=== PATIENT | male | born 1960 | race Caucasian/White ===

== ENCOUNTER 2019-04-23 10:15 | Emergency (ER) | payer BC, OTHER ==
[~2019-04-23] VITALS: Ht 172.7 cm; Wt 90.6 kg
[2019-04-23] MEDS ORDERED: IBUP-1114 PO (10:22)
[2019-04-23 11:09] LABS: BASO % 0.6 % (0.0-1.0); EOS # 0.1 10^3/uL (0.0-0.50); EOS % 1.4 % (0.0-3.0); HEMATOCRIT 46.6 % (42.0-52.0); HEMOGLOBIN 16.1 g/dl (13.5-17.5); LYMPH # 0.8 10^3/uL (1.5-4.5); LYMPH % 11.7 % (24.0-44.0); MEAN CORPUSCULAR HGB CONC 34.5 g/dl (32.0-36.5); MEAN CORPUSCULAR VOLUME 89.6 fl (80.0-96.0); MONO # 0.4 10^3/uL (0.0-0.8); MONO % 6.3 % (0.0-5.0); NEUTROPHILS # 5.1 10^3/uL (1.8-7.7); NEUTROPHILS % 79.7 % (36.0-66.0); PLATELET COUNT, AUTOMATED 238 10^3/uL (150-450); WHITE BLOOD COUNT 6.4 10^3/uL (4.0-10.0)
[2019-04-23] MEDS ORDERED: MECLIZINE 25 MG TABLET PO ONE (11:45)
[2019-04-23 11:47] LABS: BLOOD UREA NITROGEN 16 MG/DL (7-18); CALCIUM LEVEL 8.8 MG/DL (8.8-10.2); CARBON DIOXIDE LEVEL 27 MEQ/L (21-32); CHLORIDE LEVEL 109 MEQ/L (98-107); CK-MB VALUE MASS 1.5 NG/ML (<3.6); CPK CREATINE PHOSPHOKINASE 105 U/L (39-308); CREATININE FOR GFR 0.97 MG/DL (0.70-1.30); GLOMERULAR FILTRATION RATE > 60.0 (>49); GLUCOSE, FASTING 111 MG/DL (70-100); MB/CK RELATIVE INDEX 1.43 (< OR =4); POTASSIUM SERUM 4.3 MEQ/L (3.5-5.1); SODIUM LEVEL 143 MEQ/L (136-145); TROPONIN I < 0.02 NG/ML (< 0.10)
--- NOTE | 2019-04-23 12:00 | REP ---
CT BRAIN WITHOUT CONTRAST: CT brain performed without IV contrast. The ventricles are normal in size and position with no midline shift or mass effect. No abnormal brain densities are seen. Felder-white differentiation is well maintained. There is no midline shift or mass effect. There is no acute intracranial hemorrhage or extra-axial fluid collection. Bone window examination is unremarkable. IMPRESSION: Negative noncontrast CT brain. Electronically Signed by Winston Felder MD 04/23/2019 11:44 P
--- NOTE | 2019-04-23 12:09 | REP ---
CHEST, SINGLE VIEW: There is no evidence of acute infiltrate. No pleural effusion is seen. The heart is normal in size. The mediastinal silhouette is unremarkable. The visualized osseous structures are intact. IMPRESSION: No acute pulmonary disease. Electronically Signed by Winston Felder MD 04/23/2019 11:50 P
[2019-04-23 12:14] LABS: INR 1.05; PROTHROMBIN TIME 13.4 SECONDS (11.8-14.0)
[2019-04-23] MEDS ORDERED: ACETAMINOPHEN 325 MG TAB PO ONE (13:30)
[2019-04-23] MEDS ORDERED: MECL1CHW PO (13:45)
[2019-04-23 13:59] VITALS: BP 116/74
--- NOTE | 2019-04-23 14:21 | REP ---
MRI BRAIN WITHOUT CONTRAST: Multiple sequences obtained in the axial and sagittal planes. The ventricles are normal in size and position. There is no midline shift or mass effect. Felder-white differentiation is well maintained. No abnormal signal is seen in the brain, brain stem or cerebellum. 7th and 8th cranial nerve complexes are unremarkable. There is no evidence of acute infarct. Globes appear intact. IMPRESSION: No acute infarct. No acute intracranial finding identified. Electronically Signed by Winston Felder MD 04/24/2019
--- NOTE | 2019-04-23 14:25 | REP ---
MRA BRAIN: MRA brain is performed utilizing 3D [id number] imaging with MIP reconstruction images. Vertebral arteries are patent. Basilar artery is patent with no stenosis. Intracranial carotid vessels are symmetrical and patent. Anterior, middle and posterior cerebral arteries are symmetrical in appearance with no evidence of significant intracranial arterial stenosis or occlusion. Anterior and posterior communicating arteries are patent. There is no evidence of aneurysm or AVM. IMPRESSION: Negative MRA brain. Electronically Signed by Winston Felder MD 04/24/2019
--- NOTE | 2019-04-23 19:41 | ECGEPIP ---
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
== END 2019-04-23 14:07 | disposition home or self-care (01) ==
LOC: M ED 10:15
DX: H81.399 Other peripheral vertigo, unspecified ear (principal); R51 Headache; R11.0 Nausea

== ENCOUNTER → 2020-04-20 | Outpatient (CLI) | payer BC, OTHER ==
[~2020-04-20] MED LIST: IBUP-1114 PO; MECL1CHW PO
--- NOTE | 2020-04-21 08:54 | REP ---
REASON: Pain. There is acromioclavicular and glenohumeral joint degenerative change with asymmetric joint space narrowing and osteophytosis. There is no evidence of an acute fracture, dislocation, or subluxation. IMPRESSION: Chronic changes. Electronically Signed by Trung Mckeon DO 04/21/2020 08:57 A
== END ==
LOC: M WUC 14:22
PROVIDERS: ATTEND Physician Assistant
DX: M25.712 Osteophyte, left shoulder (principal)

== ENCOUNTER → 2020-05-19 | Outpatient (CLI) | payer BC, OTHER ==
--- NOTE | 2020-06-24 10:05 | REP ---
RIGHT RING FINGER SERIES: 4-VIEWS HISTORY: Crush injury. FINDINGS: 4-views of the ring finger demonstrate a slightly comminuted crush type fracture of the distal tuft with associated soft tissue swelling. No opaque foreign body is seen. There is osteoarthritic spurring at the DIP joint of the ring and long finger. IMPRESSION: Crush type fracture distal tuft right ring finger. MTDD
== END ==
LOC: M WUC 15:53
PROVIDERS: ATTEND Physician Assistant
DX: S62.634A Displaced fracture of distal phalanx of right ring finger, initial encounter for closed fracture (principal); X58.XXXA Exposure to other specified factors, initial encounter; Y92.9 Unspecified place or not applicable

== ENCOUNTER → 2021-05-30 | Outpatient (CLI) | payer OTHER, BC ==
[2021-05-30 20:41] LABS: ALT/SGPT 33 U/L (12-78); BILIRUBIN,TOTAL 0.4 MG/DL (0.2-1.0); BLOOD UREA NITROGEN 18 MG/DL (7-18); CALCIUM LEVEL 8.6 MG/DL (8.8-10.2); CARBON DIOXIDE LEVEL 28 MEQ/L (21-32); CHLORIDE LEVEL 107 MEQ/L (98-107); CHOLESTEROL LEVEL 201 MG/DL (<200); CHOLESTEROL RISK RATIO 6.281 (<5); CREATININE FOR GFR 1.12 MG/DL (0.70-1.30); GLOMERULAR FILTRATION RATE > 60.0 (>49); GLUCOSE, FASTING 101 MG/DL (70-100); HDL CHOLESTEROL 32 MG/DL (>40); NON-HDL-C 169 MG/DL; SODIUM LEVEL 141 MEQ/L (136-145); TRIGLYCERIDES LEVEL 534 MG/DL (<150)
[2021-05-30 20:42] LABS: ALBUMIN 3.7 GM/DL (3.2-5.2); TOTAL PROTEIN 7.1 GM/DL (6.4-8.2)
== END ==
LOC: M WUC 15:23
PROVIDERS: ATTEND Nurse Practitioner Family
DX: Z00.00 Encounter for general adult medical examination without abnormal findings (principal)

== ENCOUNTER → 2021-06-11 | Outpatient (REF) | payer OTHER, BC | LOC: M WUC 09:44 | PROVIDERS: ATTEND Physician Assistant | DX: R35.0 Frequency of micturition (principal) ==

== ENCOUNTER → 2021-06-13 | Outpatient (CLI) | payer OTHER, BC ==
[2021-06-13 16:32] LABS: ALBUMIN 3.8 GM/DL (3.2-5.2); BLOOD UREA NITROGEN 13 MG/DL (7-18); CARBON DIOXIDE LEVEL 28 MEQ/L (21-32); CHLORIDE LEVEL 103 MEQ/L (98-107); CREATININE FOR GFR 1.06 MG/DL (0.70-1.30); GLOMERULAR FILTRATION RATE > 60.0 (>49); GLUCOSE, FASTING 111 MG/DL (70-100); PHOSPHORUS LEVEL 3.6 MG/DL (2.5-4.9); POTASSIUM SERUM 4.1 MEQ/L (3.5-5.1); SODIUM LEVEL 139 MEQ/L (136-145)
== END ==
LOC: M WUC 13:25
PROVIDERS: ATTEND Physician Assistant
DX: R10.30 Lower abdominal pain, unspecified (principal); R35.0 Frequency of micturition

== ENCOUNTER → 2021-06-24 | Outpatient (CLI) | payer BC, OTHER ==
--- NOTE | 2021-06-24 13:39 | REP ---
INDICATION: LOWER ABD PAIN, FREQUENCY. COMPARISON: None. TECHNIQUE: Real-time sonographic evaluation of the kidneys with Doppler FINDINGS: Multiple ultrasonographic images of the right kidney show the right kidney to measure 11 x 5.2 x 5.8 cm. The renal cortical echotexture is unremarkable. There are no masses. There is good corticomedullary differentiation. There is no hydronephrosis. There are no perinephric fluid collections. Multiple ultrasonographic images of the left kidney show the left kidney to measure 10.2 x 4.8 x 6.3 cm. The renal cortical echotexture is unremarkable. There are no masses. There is good corticomedullary differentiation. There is no hydronephrosis. There are no perinephric fluid collections. A tiny anechoic structure seen arising from the inferior pole which measures 1 cm. IMPRESSION: There is a tiny simple left renal cyst as described above. Examination is otherwise unremarkable. <Electronically signed by Trung Mckeon > 06/24/21 [id number]
--- NOTE | 2021-06-24 13:51 | REP ---
INDICATION: LOWER ABD PAIN, FREQUENCY. COMPARISON: None. TECHNIQUE: Real-time sonographic evaluation of the urinary bladder using transvesical technique FINDINGS: The pre void urinary bladder volume calculation is 713.8 cc and the postvoid urinary bladder volume calculation is 194.8 cc. This renders a 27.2% postvoid residual. There is no evidence of a urinary bladder mass or significant mucosal abnormality. The prostate gland was seen to be mildly enlarged. Uro jet phenomena was seen bilaterally at the UV junction. IMPRESSION: As above. <Electronically signed by Trung Mckeon > 06/24/21 [id number]
== END ==
LOC: M RAD 12:40
PROVIDERS: ATTEND Physician Assistant
DX: R35.0 Frequency of micturition (principal); R10.30 Lower abdominal pain, unspecified; N28.1 Cyst of kidney, acquired

== ENCOUNTER → 2021-09-10 | Outpatient (REF) | LOC: M LABSMTC 10:30 | PROVIDERS: ATTEND Pediatrics | DX: Z20.822 Contact with and (suspected) exposure to COVID-19 (principal) ==

== ENCOUNTER → 2021-10-01 | Outpatient (CLI) | payer BC, OTHER ==
--- NOTE | 2021-10-06 20:55 | SLEEPCENT ---
DATE: 10/01/2021 ORDERED BY: BROWN Soliman Nocturnal polysomnography was performed for evaluation of sleep physiology in this patient with a history of excessive somnolence and nonrestorative sleep. Seven hours and 15 minutes of data were reviewed. There were 379.5 minutes of sleep identified. Sleep latency was mildly prolonged at 16.5 minutes, REM latency likewise at 128 minutes. Sleep architecture once established was fair. There were three REM cycles noted. Overall sleep efficiency was 88.4%. The electrocardiogram showed an underlying sinus rhythm with an average heart rate of 66 beats per minute. Rate ranged 50-80. EEG showed reasonably normal waveforms for wake and sleep. There were 388 respiratory events identified of 10 seconds in duration or greater for an apnea-hypopnea index of 61.3. The events were primarily obstructive, but 81 mixed and central apneas were also noted. Respiratory events were not exclusive to sleep stage nor body posture. Arousals from respiratory events occurred 8.1 times per hour, and oxygen desaturations were seen into the low 80s. There was some limb activity in the EMG leads but limb movement arousal index was only 0.6. IMPRESSIONS: Severe obstructive sleep apnea syndrome (G47.33). Apnea-hypopnea index 61.3. RECOMMENDATION: The patient should be encouraged to return to [facility] for [facility]. In the interim, alcohol and sedative avoidance should be practiced and caution exercised during the operation of motor vehicles. cc: Kari Poole NP
== END ==
LOC: M SLEEP 19:45
PROVIDERS: ATTEND Physician Assistant
DX: G47.33 Obstructive sleep apnea (adult) (pediatric) (principal)

== ENCOUNTER → 2021-11-23 | Outpatient (CLI) | payer BC, OTHER | LOC: M SLEEP 20:00 | PROVIDERS: ATTEND Physician Assistant | DX: G47.33 Obstructive sleep apnea (adult) (pediatric) (principal) ==

== ENCOUNTER 2022-03-26 12:56 | Emergency (ER) | payer BC, OTHER ==
[~2022-03-26] VITALS: Ht 172.7 cm; Wt 90.9 kg
[2022-03-26] MEDS ORDERED: ONDANSETRON 4MG/2ML VIAL IV ONE (13:30)
[2022-03-26] MEDS ORDERED: KETOROLAC 30 MG/ML 1ML VIAL IV ONE (13:30)
[2022-03-26 13:52] LABS: BASO # 0.1 10^3/uL (0.0-0.2); BASO % 0.4 % (0.0-1.0); EOS # 0.1 10^3/uL (0.0-0.5); EOS % 0.5 % (0.0-3.0); HEMATOCRIT 45.9 % (42.0-52.0); HEMOGLOBIN 15.9 g/dl (13.5-17.5); LYMPH # 0.9 10^3/uL (1.5-5.0); LYMPH % 6.6 % (24.0-44.0); MEAN CORPUSCULAR HEMOGLOBIN 30.7 pg (27.0-33.0); MEAN CORPUSCULAR HGB CONC 34.6 g/dl (32.0-36.5); MEAN CORPUSCULAR VOLUME 88.6 fl (80.0-96.0); MONO # 0.6 10^3/uL (0.0-0.8); MONO % 4.8 % (2.0-8.0); NEUTROPHILS # 11.3 10^3/uL (1.5-8.5); NEUTROPHILS % 87.1 % (36.0-66.0); PLATELET COUNT, AUTOMATED 284 10^3/uL (150-450); RED BLOOD COUNT 5.18 10^6/uL (4.30-6.10); WHITE BLOOD COUNT 12.9 10^3/uL (4.0-10.0)
[2022-03-26 14:03] LABS: INR 0.99; PROTHROMBIN TIME 13.5 SECONDS (12.7-14.5)
[2022-03-26 14:04] LABS: PARTIAL THROMBOPLASTIN TIME 31.6 SECONDS (25.9-37.0)
[2022-03-26 14:24] LABS: ERYTHROCYTE SEDIMENTATION RATE 4 mm/hr (0-20)
[2022-03-26 14:32] LABS: CK-MB VALUE MASS 2.5 NG/ML (<3.6); MB/CK RELATIVE INDEX 1.34 (< OR =4)
[2022-03-26 15:55] LABS: APPEARANCE, URINE CLEAR (CLEAR); BACTERIA, URINE AUTO NEGATIVE (NEGATIVE); BILIRUBIN, URINE AUTO NEGATIVE (NEGATIVE); BLOOD, URINE BLOOD NEGATIVE (NEGATIVE); COLOR, URINE YELLOW (YELLOW); GLUCOSE, URINE (UA) AUTO NEGATIVE (NEGATIVE); KETONE, URINE AUTO 2+ mg/dL (NEGATIVE); LEUKOCYTE ESTERASE, URINE AUTO NEGATIVE (NEGATIVE); MUCUS, URINE SMALL (NEGATIVE); NITRITE, URINE AUTO NEGATIVE (NEGATIVE); PROTEIN, URINE AUTO 1+ mg/dL (NEGATIVE); RBC, URINE AUTO 0 /HPF (0-3); SPECIFIC GRAVITY URINE AUTO 1.025 (1.002-1.035); SQUAMOUS EPITHELIAL CELL UR AU 0 /HPF (0-6); UROBILINOGEN, URINE AUTO 0.2 mg/dL (0.0-2.0); WBC, URINE AUTO 0 /HPF (0-3)
[2022-03-26] MEDS ORDERED: methylPREDNISolone 125MG 2ML VIAL IV ONE (16:00)
[2022-03-26] MEDS ORDERED: methocarbamoL 500 MG TAB PO ONE (16:00)
[2022-03-26] MEDS ORDERED: MORPHINE 2 MG/ML 1ML VIAL IV ONE (17:10)
[2022-03-26] MEDS ORDERED: ACET-683 PO (18:17)
[2022-03-26] MEDS ORDERED: HOME MED LIST COMPLETE! XX SCH (18:20)
[2022-03-26 18:27] LABS: RSV AMPLIFICATION NEGATIVE (NEGATIVE)
[2022-03-26] MEDS ORDERED: LIDO5DIS41 TD (18:31)
[2022-03-26] MEDS ORDERED: KETO10TAB PO (18:31)
[2022-03-26] MEDS ORDERED: METH-1165 PO (18:31)
[2022-03-26] MEDS ORDERED: physical therapy (18:39)
[2022-03-26 18:41] VITALS: BP 141/80
== END 2022-03-26 18:56 | disposition home or self-care (01) ==
LOC: M ED 12:56
DX: M54.50 Low back pain, unspecified (principal); R94.31 Abnormal electrocardiogram [ECG] [EKG]; H81.4 Vertigo of central origin; K57.90 Diverticulosis of intestine, part unspecified, without perforation or abscess without bleeding; F10.10 Alcohol abuse, uncomplicated; Z79.899 Other long term (current) drug therapy
CPT/HCPCS: 72131; 73502; 80047; 81001; 82550; 82553; 84484; 85025; 85610; 85652; 85730; 87631; 93005; 96374; 96375; 99284; J1885; J2270; J2405; J2930

== ENCOUNTER 2022-03-26 21:14 | Emergency (ER) | payer BC, OTHER ==
[~2022-03-26] VITALS: Ht 172.7 cm; Wt 90.9 kg
[~2022-03-26 21:14] MED LIST changes: +ACET-683 PO; +KETO10TAB PO; +LIDO5DIS41 TD; +METH-1165 PO; +physical therapy
[2022-03-27 00:23] VITALS: BP 122/72
== END 2022-03-27 03:14 | disposition left against medical advice (07) ==
LOC: M ED 21:14
DX: Z53.21 Procedure and treatment not carried out due to patient leaving prior to being seen by health care provider (principal)

== ENCOUNTER → 2022-04-09 | Outpatient (CLI) | payer BC, OTHER | LOC: M SOG 08:35 | PROVIDERS: ATTEND Orthopaedic Surgery | DX: Z47.89 Encounter for other orthopedic aftercare (principal) ==

== ENCOUNTER → 2022-05-01 | Outpatient (REF) | payer OTHER, BC | LOC: M SFHCDERM 16:51 | PROVIDERS: ATTEND Nurse Practitioner Family | DX: L82.1 Other seborrheic keratosis (principal) ==

== ENCOUNTER → 2022-06-10 | Outpatient (CLI) | payer BC, OTHER ==
[2022-06-10 13:44] LABS: ALT/SGPT 23 U/L (12-78); BILIRUBIN,TOTAL 0.4 MG/DL (0.2-1.0); BLOOD UREA NITROGEN 19 MG/DL (7-18); CARBON DIOXIDE LEVEL 24 MEQ/L (21-32); CHLORIDE LEVEL 109 MEQ/L (98-107); CHOLESTEROL LEVEL 209 MG/DL (<200); CHOLESTEROL RISK RATIO 4.543 (<5); CREATININE FOR GFR 1.05 MG/DL (0.70-1.30); GLOMERULAR FILTRATION RATE > 60.0 (>49); GLUCOSE, FASTING 95 MG/DL (70-100); HDL CHOLESTEROL 46 MG/DL (>40); LDL CHOLESTEROL 146 MG/DL (<100); NON-HDL-C 163 MG/DL; POTASSIUM SERUM 4.3 MEQ/L (3.5-5.1); SODIUM LEVEL 140 MEQ/L (136-145); TRIGLYCERIDES LEVEL 83 MG/DL (<150)
== END ==
LOC: M WUC 09:24
PROVIDERS: ATTEND Nurse Practitioner Family
DX: E78.2 Mixed hyperlipidemia (principal)

== ENCOUNTER → 2023-03-04 | Outpatient (CLI) | payer BC, OTHER | LOC: M RAD 07:33 | PROVIDERS: ATTEND Orthopaedic Surgery | DX: M54.16 Radiculopathy, lumbar region (principal) ==

== ENCOUNTER → 2024-02-22 | Outpatient (CLI) | payer BC | LOC: M RAD 07:54 | PROVIDERS: ATTEND Nurse Practitioner Family | DX: R42 Dizziness and giddiness (principal); R51.9 Headache, unspecified ==

== ENCOUNTER → 2024-03-07 | Outpatient (CLI) | payer MEDICARE, BC ==
[~2024-03-07] MED LIST changes: +ISOVUE-370 76% 100ML VIAL As Ordered ONE
== END ==
LOC: M RAD 16:04
PROVIDERS: ATTEND Nurse Practitioner Family
DX: R10.9 Unspecified abdominal pain (principal); R19.01 Right upper quadrant abdominal swelling, mass and lump
CPT/HCPCS: 74177; Q9967

== ENCOUNTER → 2024-03-30 | Outpatient (CLI) | payer MEDICARE, BC ==
[~2024-03-30] MED LIST changes: -ISOVUE-370 76% 100ML VIAL As Ordered ONE
== END ==
LOC: M WHC 06:45
PROVIDERS: ATTEND Nurse Practitioner Family
DX: R19.01 Right upper quadrant abdominal swelling, mass and lump (principal); K76.0 Fatty (change of) liver, not elsewhere classified; K76.89 Other specified diseases of liver

== ENCOUNTER → 2024-07-03 | Outpatient (CLI) | payer MEDICARE, BC | LOC: M RAD 07:16 | PROVIDERS: ATTEND Orthopaedic Surgery | DX: M48.062 Spinal stenosis, lumbar region with neurogenic claudication (principal); M47.816 Spondylosis without myelopathy or radiculopathy, lumbar region; M51.27 Other intervertebral disc displacement, lumbosacral region; M51.26 Other intervertebral disc displacement, lumbar region ==

== ENCOUNTER → 2024-08-20 | Outpatient (REF) | payer MEDICARE, OTHER | LOC: M LAB REF 09:52 | PROVIDERS: ATTEND Student in an Organized Health Care Education/Training Program | DX: R30.0 Dysuria (principal) ==

== ENCOUNTER → 2025-01-09 | Outpatient (REF) | payer MEDICARE, BC | LOC: M SFHCRHEU 15:06 | PROVIDERS: ATTEND Internal Medicine | DX: M54.9 Dorsalgia, unspecified (principal) ==

== ENCOUNTER → 2025-01-10 | Outpatient (CLI) | payer MEDICARE, BC | LOC: M WUC 11:12 | PROVIDERS: ATTEND Internal Medicine | DX: M54.9 Dorsalgia, unspecified (principal); M16.0 Bilateral primary osteoarthritis of hip ==

== ENCOUNTER → 2025-04-09 | Outpatient (CLI) | payer MEDICARE, BC ==
[~2025-04-09] MED LIST changes: +LIDO1ADH93 TD; -LIDO5DIS41 TD
== END ==
LOC: M RAD 08:27
PROVIDERS: ATTEND Nurse Practitioner Family
DX: R10.13 Epigastric pain (principal); K80.20 Calculus of gallbladder without cholecystitis without obstruction; N28.1 Cyst of kidney, acquired

== ENCOUNTER → 2025-04-23 | Outpatient (CLI) | payer MEDICARE, BC | LOC: M RAD 16:40 | PROVIDERS: ATTEND Internal Medicine | DX: M54.9 Dorsalgia, unspecified (principal); M46.1 Sacroiliitis, not elsewhere classified; M47.816 Spondylosis without myelopathy or radiculopathy, lumbar region; M48.061 Spinal stenosis, lumbar region without neurogenic claudication ==

== ENCOUNTER → 2025-07-03 | Outpatient (REF) | payer MEDICARE, OTHER ==
[~2025-07-03] MED LIST changes: +GABA-1172 PO; +IBUP-354 PO
== END ==
LOC: M LAB REF 17:05
PROVIDERS: ATTEND Nurse Practitioner Family
DX: Z01.818 Encounter for other preprocedural examination (principal); Z79.899 Other long term (current) drug therapy

== ENCOUNTER → 2025-07-04 | Outpatient (CLI) | payer MEDICARE, BC ==
[2025-07-04 11:09] LABS: PLATELET COUNT, AUTOMATED 269 10^3/uL (150-450)
[2025-07-04 11:19] LABS: ERYTHROCYTE SEDIMENTATION RATE 8 mm/hr (0-20)
[2025-07-04 11:22] LABS: INR 1.0
[2025-07-04 11:36] LABS: ALT/SGPT 32 U/L (7.0-40); AST/SGOT 24 U/L (<34); CALCIUM LEVEL 9.3 MG/DL (8.3-10.6); CARBON DIOXIDE LEVEL 30 MMOL/L (20-31); CHLORIDE LEVEL 104 MMOL/L (98-107); CREATININE FOR GFR 0.91 MG/DL (0.70-1.30); GLOMERULAR FILTRATION RATE > 90.0 (>49); POTASSIUM SERUM 4.1 MMOL/L (3.5-5.1); SODIUM LEVEL 143 MMOL/L (136-145)
== END ==
LOC: M EKG 10:09
PROVIDERS: ATTEND Orthopaedic Surgery
DX: Z01.818 Encounter for other preprocedural examination (principal); M48.062 Spinal stenosis, lumbar region with neurogenic claudication

== ENCOUNTER 2025-07-11 08:54 | Day surgery (SDC) | payer MEDICARE, BC ==
[~2025-07-11] VITALS: Ht 172.7 cm; Wt 87.8 kg
[2025-07-11] MEDS ORDERED: LIDOCAINE 2% 100 MG/5 ML SDV (FOR ANES.) As Ordered ONE (09:28)
[2025-07-11 09:43] VITALS: TEMP 97.3
[2025-07-11 09:56] VITALS: BP 111/62; O2SAT 97
== END 2025-07-11 10:10 | disposition home or self-care (01) ==
LOC: M OPP 08:54
PROVIDERS: ATTEND Surgery
DX: Z12.11 Encounter for screening for malignant neoplasm of colon (principal); K64.0 First degree hemorrhoids; K57.30 Diverticulosis of large intestine without perforation or abscess without bleeding